=== PATIENT | male | born 1940 ===

== ENCOUNTER 2019-04-17 12:19 | Emergency (ER) | payer MEDICARE, BC ==
[~2019-04-17] VITALS: Ht 190.5 cm; Wt 106.4 kg
--- NOTE | 2019-04-17 12:42 | NUR ---
Triaged Pt for Primary RN, Tracy. Consulted Dr Chiu and CT's ordered. Notified gas usage meter clerk via Radio of Trauma Status.
--- NOTE | 2019-04-17 13:17 | NUR ---
assumed care of pt from Sheila ZIMMERMAN, pt is going to CT
--- NOTE | 2019-04-17 14:00 | NUR ---
trauma status called off by Dr Steele
[2019-04-17] MEDS ORDERED: TETanus/Pertussis (Acell)/Diphther VAC/PF (Tdap-Adult) 0.5ml syringe IM ONE (14:05)
[2019-04-17] MEDS ORDERED: LIDOcaine/epinephrine TOPICAL 5 ML BTL TOP ONE ×2 (14:05→15:45)
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
[2019-04-17] MEDS ORDERED: HYDROcodone/acetaminophen 10/325mg tab PO ONE (15:35)
[2019-04-17] MEDS ORDERED: ibuprofen 200mg tablet PO ONE (15:35)
[2019-04-17] MEDS ORDERED: HYDR-3965 PO ×2 (15:36→15:46)
[2019-04-17 17:45] VITALS: BP 112/74
== END 2019-04-17 17:47 | disposition home or self-care (01) ==
LOC: ER 12:19
DX: S61.511A Laceration without foreign body of right wrist, initial encounter (principal); S61.412A Laceration without foreign body of left hand, initial encounter; S51.012A Laceration without foreign body of left elbow, initial encounter; S81.012A Laceration without foreign body, left knee, initial encounter; S80.211A Abrasion, right knee, initial encounter; S00.81XA Abrasion of other part of head, initial encounter; I25.10 Atherosclerotic heart disease of native coronary artery without angina pectoris; I13.0 Hypertensive heart and chronic kidney disease with heart failure and stage 1 through stage 4 chronic kidney disease, or unspecified chronic kidney disease; N18.9 Chronic kidney disease, unspecified; I50.9 Heart failure, unspecified; Z95.1 Presence of aortocoronary bypass graft; Z98.890 Other specified postprocedural states; W18.09XA Striking against other object with subsequent fall, initial encounter; Y93.89 Activity, other specified; Y92.89 Other specified places as the place of occurrence of the external cause; Y99.9 Unspecified external cause status
CPT/HCPCS: 70450; 72125; 73560; 90471; 99284